=== PATIENT | male | born 1950 | race Caucasian/White ===

== ENCOUNTER 2017-11-15 12:10 | Inpatient (IN) | payer OTHER ==
[~2017-11-15] VITALS: Ht 180.3 cm; Wt 95.3 kg
[2017-11-15] MEDS ORDERED: AVAPRO300 MG (13:16)
[2017-11-15] MEDS ORDERED: PREVACID30 MG (13:17)
[2017-11-17] MEDS ORDERED: OXYC1TAB9 PO (13:24)
[2017-11-17] MEDS ORDERED: RECTICARE30 GM TOP (13:24)
[2017-11-17] MEDS ORDERED: POLY119PG PO (13:24)
== END 2017-11-17 14:25 | disposition home or self-care (01) | DRG 349 ==
LOC: ER 12:10 → SURG 19:53 → SEC-K 19:53 → SURG 21:45
PROVIDERS: Surgery
PROC: 3E0T3BZ Introduction of Anesthetic Agent into Peripheral Nerves and Plexi, Percutaneous Approach (ICD-10-PCS; 2017-11-16)
PROC: 06BY0ZC Excision of Hemorrhoidal Plexus, Open Approach (ICD-10-PCS; principal; 2017-11-16 09:15)
DX: K64.3 Fourth degree hemorrhoids (principal)